=== PATIENT | female | born 1985 | race Caucasian/White ===

== ENCOUNTER 2016-09-18 12:03 | Emergency (ER) | payer MEDICARE, MEDICAID ==
[~2016-09-18] VITALS: Ht 157.5 cm; Wt 98.6 kg
[~2016-09-18 12:03] MED LIST: AMOX1TAB64 PO; CARI350T PO; CLON-364 PO; FLUO20CA19; HYDR-3307 PO; HYDR-882 PO; LAMO100T5; LITH300C PO; LITH300T3; METO10TA82 PO; MORP15TA39 PO; ONDA4TAB7 PO
[2016-09-18] MEDS ORDERED: SUMATRIPTAN 6MG/0.5ML SQ ONE ×2 (12:30→16:51)
[2016-09-18] MEDS ORDERED: METOCLOPRAMIDE 5 MG/ML, 2ML IVPush ONE (12:30)
[2016-09-18] MEDS ORDERED: DIAZEPAM 5 MG/ML, 2ML IVPush ONE (12:30)
[2016-09-18] MEDS ORDERED: KETOROLAC 30 MG/1 ML IVPush ONE (12:30)
[2016-09-18] MEDS ORDERED: SODIUM CHLORIDE FLUSH 10ML SYR IVF ONE (12:30)
[2016-09-18] MEDS ORDERED: SODIUM CHLORIDE 0.9% 1,000ML IVBOLUS ONE (12:30)
[2016-09-18] MEDS ORDERED: METOCLOPRAMIDE 5 MG/ML, 2ML ONE (16:51)
[2016-09-18] MEDS ORDERED: KETOROLAC 30 MG/1 ML ONE (16:51)
[2016-09-18] MEDS ORDERED: DIAZEPAM 5 MG/ML, 2ML ONE (16:51)
[2016-09-18 17:05] VITALS: BP 133/81
[2016-09-18 17:11] LABS: HEMOGLOBIN 13.1 g/dL (11.7-16.4)
[2016-09-18 17:25] LABS: ASPARTATE AMINO TRANSFERASE 20 U/L (15-37); BLOOD UREA NITROGEN 6 mg/dL (7-18)
== END 2016-09-18 17:45 | disposition home or self-care (01) ==
LOC: ED 17:39
DX: R51 Headache (principal); E11.9 Type 2 diabetes mellitus without complications
CPT/HCPCS: 36415; 80053; 84703; 85025; 96361; 96372; 96374; 96375; 99285; J1885; J2765; J3030; J7030